=== PATIENT | female | born 2000 | race Caucasian/White ===

== ENCOUNTER 2022-09-11 00:01 | Inpatient (IN) | payer OTHER ==
[~2022-09-11] VITALS: Ht 162.6 cm; Wt 118.4 kg
--- NOTE | 2022-09-11 10:48 | PR ---
[facility] [facility] [address] [facility] [place], [place] [address] Signed Progress Notes IP Datetime Report Generated by CPN: 09/11/2022 10:48 PROGRESS NOTES: [id number] Impression: Reassuring Heart Rate Procedures: Artificial ROM; Sterile Vag Exam Plan: Continue Present Management VITAL SIGNS: [id number] Vital Signs: Reviewed; Within Normal Limits EXAM: [id number] Dilatation: 1.0 Effacement: 50 Station: -2 Contractions: q 2 to 3 min MEMBRANES: [id number] Comments: Still comfortable but leonel frequently. Will continue. FETUS A: [id number] FHR Baseline: 125 Variability: Moderate 6-25bpm Accelerations: 15X15 Decelerations: None FHR Category: Category I Presentation: Vertex Comments on Fetus A: No evidence of metabolic acidosis FETUS B: [id number] Signing Physician: Sury Cervantes MD Copies: ~ *Electronically Signed* 09/11/22 1048 SURY CERVANTES MD PATIENT NAME: SAMIRAIRMA Dumont PROGRESS NOTE DATE OF : 99 PHYSICIAN: SURY CERVANTES MD RPT #: [id number] REPORT IS CONFIDENTIAL AND NOT TO BE RELEASED WITHOUT AUTHORIZATION
--- NOTE | 2022-09-11 12:35 | PR ---
[facility] [address] [facility] [place], [place] [address] Signed Progress Notes IP Datetime Report Generated by CPN: 09/11/2022 12:35 PROGRESS NOTES: [id number] Impression: Reassuring Heart Rate Procedures: Sterile Vag Exam Plan: Continue Present Management VITAL SIGNS: [id number] Vital Signs: Reviewed; Within Normal Limits EXAM: [id number] Dilatation: 1.0 Effacement: 50 Station: -2 Contractions: q 2 to 3 min MEMBRANES: [id number] Comments: Having some low back discomfort. Will work on different positions as I suspect baby may be posterior. FETUS A: [id number] FHR Baseline: 125 Variability: Moderate 6-25bpm Accelerations: 15X15 Decelerations: None FHR Category: Category I Presentation: Vertex Comments on Fetus A: No evidence of metabolic acidosis FETUS B: [id number] Signing Physician: Sury Cervantes MD Copies: ~ *Electronically Signed* 09/11/22 1235 SURY CERVANTES MD PATIENT NAME: IRMA HOGAN PROGRESS NOTE DATE OF : 99 PHYSICIAN: SURY CERVANTES MD RPT #: [id number] REPORT IS CONFIDENTIAL AND NOT TO BE RELEASED WITHOUT AUTHORIZATION
--- NOTE | 2022-09-11 18:46 | PR ---
[facility] [address] [place], [place] [address] Signed Progress Notes IP Datetime Report Generated by CPN: 09/11/2022 18:46 PROGRESS NOTES: [id number] Impression: Reassuring Heart Rate Procedures: Intrauterine Pressure Catheter; Sterile Vag Exam Plan: Continue Present Management VITAL SIGNS: [id number] Vital Signs: Reviewed; Within Normal Limits EXAM: [id number] Dilatation: 4.0 Effacement: 90 Station: -2 Contractions: q 2 to 3 min MEMBRANES: [id number] Comments: Comfortable after epidural but contractions not picking up well. Will place IUPC and augment if needed. FETUS A: [id number] FHR Baseline: 125 Variability: Moderate 6-25bpm Accelerations: 15X15 Decelerations: None FHR Category: Category I Presentation: Vertex Comments on Fetus A: No evidence of metabolic acidosis FETUS B: [id number] Signing Physician: Sury Cervantes MD Copies: ~ *Electronically Signed* 09/11/22 1846 SURY CERVANTES MD PATIENT NAME: IRMA HOGAN PROGRESS NOTE DATE OF : 99 PHYSICIAN: SURY CERVANTES MD RPT #: [id number] REPORT IS CONFIDENTIAL AND NOT TO BE RELEASED WITHOUT AUTHORIZATION
--- NOTE | 2022-09-11 19:06 | PR ---
[facility] [address] [facility] [place], [place] [address] Signed Progress Notes IP Datetime Report Generated by CPN: 09/11/2022 19:06 PROGRESS NOTES: [id number] Impression: Non-reassuring Heart Rate Procedures: Intrauterine Pressure Catheter; Sterile Vag Exam Plan: Continue Present Management VITAL SIGNS: [id number] Vital Signs: Reviewed; Within Normal Limits EXAM: [id number] Dilatation: 4.0 Effacement: 90 Station: -2 Contractions: q 2 to 3 min MEMBRANES: [id number] Comments: IUPC replaced and baby did not tolerate this well with decel. Recovering now but will require close observation. Contractions now registering, however. FETUS A: [id number] FHR Baseline: 125 Variability: Moderate 6-25bpm Accelerations: 15X15 Decelerations: None FHR Category: Category I Presentation: Vertex Comments on Fetus A: No evidence of metabolic acidosis FETUS B: [id number] Signing Physician: Sury Cervantes MD Copies: ~ *Electronically Signed* 09/11/221905 SURY CERVANTES MD PATIENT NAME: IRMA HOGAN PROGRESS NOTE DATE OF : 99 PHYSICIAN: SURY CERVANTES MD RPT #: [id number] REPORT IS CONFIDENTIAL AND NOT TO BE RELEASED WITHOUT AUTHORIZATION
--- NOTE | 2022-09-11 20:45 | PR ---
[facility] [address] [facility] [place], [place] [address] Signed Progress Notes IP Datetime Report Generated by CPN: 09/11/2022 20:45 PROGRESS NOTES: [id number] Impression: Reassuring Heart Rate Procedures: Scalp Electrode; Sterile Vag Exam Plan: Augmentation VITAL SIGNS: [id number] Vital Signs: Reviewed; Within Normal Limits EXAM: [id number] Dilatation: 4.0 Effacement: 90 Station: -2 Contractions: q 2 to 3 min MEMBRANES: [id number] Comments: Comfortable. Overall reassuring status with accels. She may require pit augment as contraction pattern may not be adequate in frequency. FETUS A: [id number] FHR Baseline: 125 Variability: Moderate 6-25bpm Accelerations: 15X15 Decelerations: None FHR Category: Category I Presentation: Vertex Comments on Fetus A: No evidence of metabolic acidosis FETUS B: [id number] Signing Physician: Sury Cervantes MD Copies: ~ *Electronically Signed* 09/11/222044 SURY CERVANTES MD PATIENT NAME: SAMIRAKANDYIRMA K PROGRESS NOTE DATE OF : 99 PHYSICIAN: SURY CERVANTES MD RPT #: [id number] REPORT IS CONFIDENTIAL AND NOT TO BE RELEASED WITHOUT AUTHORIZATION
--- NOTE | 2022-09-12 01:18 | PR ---
[facility] [address] [facility] [place], [place] [address] Signed Progress Notes IP Datetime Report Generated by CPN: 09/12/2022 01:18 PROGRESS NOTES: [id number] Impression: Reassuring Heart Rate Procedures: Sterile Vag Exam Plan: Continue Present Management VITAL SIGNS: G8204330 Vital Signs: Reviewed; Within Normal Limits EXAM: [id number] Dilatation: 4.5 Effacement: 90 Station: -2 Contractions: q 2 to 3 min MEMBRANES: [id number] Comments: Minimal progress. status reassuring with accels. Will continue with close observation. FETUS A: [id number] FHR Baseline: 125 Variability: Moderate 6-25bpm Accelerations: 15X15 Decelerations: None FHR Category: Category I Presentation: Vertex Comments on Fetus A: No evidence of metabolic acidosis FETUS B: [id number] Signing Physician: Sury Cervantes MD Copies: ~ *Electronically Signed* 09/12/22 0118 SURY CERVANTES MD PATIENT NAME: IRMA HOGAN PROGRESS NOTE DATE OF : 99 PHYSICIAN: SURY CERVANTES MD RPT #: [id number] REPORT IS CONFIDENTIAL AND NOT TO BE RELEASED WITHOUT AUTHORIZATION
--- NOTE | 2022-09-12 06:36 | PR ---
[facility] [place] [facility] [address] [facility] [place], [place] [address] Signed Progress Notes IP Datetime Report Generated by CPN: 09/12/2022 06:36 PROGRESS NOTES: [id number] Impression: Normal Progression of Labor; Reassuring Heart Rate Procedures: Sterile Vag Exam Plan: Anesthesia Consult VITAL SIGNS: U6994033 Vital Signs: Reviewed; Within Normal Limits EXAM: [id number] Dilatation: 9.0 Effacement: 95 Station: 0 Contractions: q 2 to 3 min MEMBRANES: [id number] Comments: Starting to get uncomfortable again. Progressing. status OK with accel with exam. Will redose and continue close observation. FETUS A: [id number] FHR Baseline: 125 Variability: Moderate 6-25bpm Accelerations: 15X15 Decelerations: None FHR Category: Category I Presentation: Vertex Comments on Fetus A: No evidence of metabolic acidosis FETUS B: [id number] Signing Physician: Sury Cervantes MD Copies: ~ *Electronically Signed* 09/12/22 0636 SURY CERVANTES MD PATIENT NAME: SAMIRAIRMA Dumont PROGRESS NOTE DATE OF : 99 PHYSICIAN: SURY CERVANTES MD RPT #: [id number] REPORT IS CONFIDENTIAL AND NOT TO BE RELEASED WITHOUT AUTHORIZATION
--- NOTE | 2022-09-13 08:40 | PR ---
[facility] [address] [facility] [place], [place] [address] Signed PP Progress Notes Datetime Report Generated by CPN: 09/13/2022 08:40 SUBJECTIVE: [id number] Pain: Within Normal Limits Vital Signs: I0975821 Vital Signs: Reviewed; Within Normal Limits EXAM: Ongoing Cardiovascular: Not Done Respiratory: Not Done Abdomen/Uterus: Abnormal Lochia: Normal Vulva/Perineum: Not Done Breasts: Not Done CVA Tenderness: Not Done Extremities: Normal Incision: Not Applicable Progress: Normal Exam Comments: Fundus firm, NT @ U-1. H/H 11.6/34, WBC 9.8, plat 106k IMPRESSION/PLAN/PROCEDURES: [id number] Impression: Normal Progression Other Impression: Thrombocytopenia Plan: Continue Present Management Progress Notes: Doing well overall Thrombocytopenia--suspect gestational but will recheck in am Signing Physician: Sury Cervantes MD Copies: ~ *Electronically Signed* 09/13/2240 SURY CERVANTES MD PATIENT NAME: IRMA HOGAN PROGRESS NOTE DATE OF : 99 PHYSICIAN: SURY CERVANTES MD RPT #: [id number] REPORT IS CONFIDENTIAL AND NOT TO BE RELEASED WITHOUT AUTHORIZATION
--- NOTE | 2022-09-14 08:57 | PR ---
[facility] [address] [facility] [place], [place] [address] Signed PP Progress Notes Datetime Report Generated by CPN: 09/14/2022 08:57 SUBJECTIVE: [id number] Pain: Within Normal Limits Vital Signs: [id number] Vital Signs: Reviewed; Within Normal Limits EXAM: Ongoing Cardiovascular: Not Done Respiratory: Not Done Abdomen/Uterus: Abnormal Lochia: Normal Vulva/Perineum: Not Done Breasts: Not Done CVA Tenderness: Not Done Extremities: Normal Incision: Not Applicable Progress: Normal Exam Comments: Fundus firm, NT @ U-2. H/H 11.6/34.9, WBC 7.4, plat 112k IMPRESSION/PLAN/PROCEDURES: [id number] Impression: Normal Progression Other Impression: Thrombocytopenia Plan: Discharge Procedures: None Progress Notes: Doing well. Thrombocytopenia improving. She is ready for D/C. Signing Physician: Sury Cervantes MD Copies: ~ *Electronically Signed* 09/14/22 0857 SURY CERVANTES MD PATIENT NAME: IRMA HOGAN PROGRESS NOTE DATE OF : 99 PHYSICIAN: SURY CERVANTES MD RPT #: [id number] REPORT IS CONFIDENTIAL AND NOT TO BE RELEASED WITHOUT AUTHORIZATION
== END 2022-09-14 11:45 | disposition home or self-care (01) | DRG 806 ==
LOC: FBC 00:01 → MS 09-12 18:46 → FBC 09-12 18:47
PROVIDERS: ADMIT Obstetrics & Gynecology; ATTEND Obstetrics & Gynecology
PROC: 10E0XZZ Delivery of Products of Conception, External Approach (ICD-10-PCS; principal; 2022-09-12)
PROC: 0KQM0ZZ Repair Perineum Muscle, Open Approach (ICD-10-PCS; 2022-09-12)
PROC: 10907ZC Drainage of Amniotic Fluid, Therapeutic from Products of Conception, Via Natural or Artificial Opening (ICD-10-PCS; 2022-09-12)
PROC: 10H07YZ Insertion of Other Device into Products of Conception, Via Natural or Artificial Opening (ICD-10-PCS; 2022-09-12)
PROC: 3E0R3BZ Introduction of Anesthetic Agent into Spinal Canal, Percutaneous Approach (ICD-10-PCS; 2022-09-12)
PROC: 00HU33Z Insertion of Infusion Device into Spinal Canal, Percutaneous Approach (ICD-10-PCS; 2022-09-12)
DX: O36.63X0 Maternal care for excessive fetal growth, third trimester, not applicable or unspecified (principal); O99.12 Other diseases of the blood and blood-forming organs and certain disorders involving the immune mechanism complicating childbirth; Z37.0 Single live birth; O76 Abnormality in fetal heart rate and rhythm complicating labor and delivery; Z20.822 Contact with and (suspected) exposure to COVID-19; O70.1 Second degree perineal laceration during delivery; O99.214 Obesity complicating childbirth; E66.01 Morbid (severe) obesity due to excess calories; D69.6 Thrombocytopenia, unspecified; Z3A.39 39 weeks gestation of pregnancy; Z79.899 Other long term (current) drug therapy; Z87.891 Personal history of nicotine dependence
CPT/HCPCS: 36415; 85025; 85027; 86850; 86900; 86901; 87502; A9270; J2590; J2795; J3010; J7121; U0003

== ENCOUNTER 2022-11-28 06:05 | Day surgery (SDC) | payer OTHER ==
--- NOTE | 2022-11-22 08:46 | NUR ---
CALLED PT TO COMPLETED A PHONE PRE ADMIT. PT'S PHONE WENT TO [employer]. LEFT MESSAGE AND WILL TRY AGAIN TODAY AT NOON. IF NOT AVAILABLE THEN WILL REACH OUT ON THE .
--- NOTE | 2022-11-22 15:01 | NUR ---
WAS ABLE TO COMPLETE PHONE PRE-ADMIT AT THIS TIME. PT REPORTS SHE HAS HAD THE RESP INFECTION THAT HAS BEEN GOING AROUND. WENT TO [facility] AND NOW IS USING HER ALBURTAL INHAILER NEEDED. NO SOB, BUT STILL HAS A COUGH. THIS SUPER[employer]OR [employer]ING [employer] WILL CALL HER ON SATURDAY TO SEE HOW SHE IS FEELING.
[~2022-11-28] VITALS: Ht 162.6 cm; Wt 93.2 kg
--- NOTE | ~2022-11-28 | OR ---
[facility] [address] [place], [place] [address] Draft DATE OF OPERATION: 11/28/2022 SURGEON: Sury Cervantes MD PREOPERATIVE DIAGNOSIS: Displaced intrauterine device. POSTOPERATIVE DIAGNOSIS: Displaced intrauterine device. PROCEDURE: Laparoscopy with removal of intrauterine device. ANESTHESIA: General ET. ESTIMATED BLOOD LOSS: Minimal. DRAINS: None. INDICATIONS AND FINDINGS: The patient is a 22-year-old female who had an IUD placed approximately six weeks ago following her vaginal delivery. When she was seen for her followup, the IUD string could not be seen. Ultrasound did not show it to be within the uterus. Pelvic x-ray did show the IUD to be in the low right pelvis. She is now admitted for removal of the IUD. Exam under anesthesia was normal. At the time of laparoscopy, the pelvis itself was normal with normal tubes and ovaries. There was no obvious site of perforation of the uterus. The IUD was in the right lower quadrant and was easily retrieved. PROCEDURE IN DETAIL: The patient was prepped and draped in the dorsal lithotomy position. An open-sided speculum was placed. The anterior lip of the cervix was visualized and grasped with a single-tooth tenaculum. The Hulka clamp was then placed and the tenaculum and speculum removed. Attention was directed above. The infraumbilical area was injected with 0.5% Marcaine plain. An incision was made with a knife. Each layer was serially elevated, incised until the fascia was open ended and identified. Stay sutures of 0 Vicryl were placed. Peritoneum was opened bluntly and a Tyrese cannula placed and the balloon inflated and it was tied into place. Placement of the scope confirmed proper PATIENT NAME: IRMA HOGAN OPERATIVE REPORT DATE OF : 99 REPORT #: [id number] PHYSICIAN: SURY CERVANTES MD PCP: NO PRIMARY CARE PHYSICIAN REPORT IS CONFIDENTIAL AND NOT TO BE RELEASED WITHOUT AUTHORIZATION [facility] [address] [place], [place] [address] Draft positioning. CO2 was then introduced into the abdomen. When the abdomen was appropriately distended, the secondary port was placed. This was placed on the left lateral aspect of the abdomen sightly below the level of the umbilicus. It was very difficult to transilluminate the abdomen, however. The port site was made quite laterally to avoid the epigastrics. This area was injected with the Marcaine incision made with a knife and a 5 mm port placed under direct vision. Following this, pelvis was evaluated. The IUD was not seen. The right lower quadrant of the string was easily visualized and grasped and the IUD was pulled through the 5 mm port without any difficulty. Inspection of the uterus did not show any perforation site that was obvious. Following this, the instruments removed from the abdomen after allowing as much CO2 as possible to escape. The fascial incision of the umbilicus was reidentified and closed with a running suture of 0 Vicryl. The deep space was closed with another suture of 0 Vicryl. The skin incisions were closed with subcuticular sutures of 3-0 Vicryl Rapide. Attention was directed down below, the Hulka clamp removed. The cervix was visualized. There was no evidence of any ongoing active bleeding. She was taken to the recovery room in good condition. All sponge and needle counts were correct. MD YEIMY Sullivan/DEIDRA /[id number] Copies: ~ PATIENT NAME: IRMA HOGAN OPERATIVE REPORT DATE OF : 99 REPORT #: [id number] PHYSICIAN: SURY CERVANTES MD PCP: NO PRIMARY CARE PHYSICIAN REPORT IS CONFIDENTIAL AND NOT TO BE RELEASED WITHOUT AUTHORIZATION
[~2022-11-28 06:05] MED LIST: DEBLITANE0.35 MG TOP; PROVENTIL HFA6.7 GM INH
[2022-11-28] MEDS ORDERED: AUROBINDO (06:31)
--- NOTE | 2022-11-28 08:26 | NUR ---
11/28/22 0826 Vanessa Snider 0804-PATIENT ARRIVED TO PACU ON 6L MASK NONAROUSABLE ORAL AIRWAY IN PLACE RR EVEN. HOBE ELEVATEDD. 2 LAP SITES TO ABDOMEN CDI WITH BANDAIDS. SB HR UPPER 40'S-50'S. IVF INFUSING.
--- NOTE | 2022-11-28 09:00 | NUR ---
0850: PT ARRIVES TO DS TREATMENT ROOM FROM PACU AWAKE. PT RATES PAIN 3/10 "ONLY WHEN COUGHING" AND SLIGHT CRAMPING. PT DENIES ANY NAUSEA AND STATES "I AM HUNGRY!" PT SPOUSE AT BEDSIDE ASKS IF SHE CAN HAVE STRAWBERRIES AND GRAPES. PT PROVIDED ICE CHIPS AND ICED WATER PER REQUEST. WARM BLANKETS PROVIDED, DC CRITERIA EXPLAINED. CALL LIGHT WITHIN REACH.
[2022-11-28] MEDS ORDERED: IBUPROFEN800 MG PO (09:53)
[2022-11-28] MEDS ORDERED: ONDANSETRON ODT8 MG PO (09:53)
[2022-11-28] MEDS ORDERED: PERCOCET 5-3251 EACH PO (09:53)
--- NOTE | 2022-11-28 13:00 | NUR ---
[id number]: PT USES CALL LIGHT WITH URGE TO VOID. PT SITS AT SIDE OF BED PRIOR TO STANDING, DENIES DIZZINESS OR NAUSEA WITH AMBULATION. PT ABLE TO VOID 800 MLS YELLOW URINE WITH PINK TINGE. PT REQUESTS TAMPON AND THIS RN EDUCATES PT THAT NOTHING CAN BE IN VAGINA UNTIL FOLLOW UP APPT AND IS PROVIDED NEW PERIPAD AND MESH PANTIES. PT BACK TO STRETCHER AND DR. RUBIN IN TO SEE PT. PT STATES THAT IT IS PAINFUL TO VOID AND DR. RUBIN VERBALLY ORDERS UA WITH CULTURES. PT WILL US CALL LIGHT WHEN READY TO VOID AGAIN. SIG OTHER REMAINS AT BEDSIDE. [id number]: PT USES CALL LIGHT TO NOTIFY RN OF URGE TO VOID, STEADY GAIT TO BATHROOM AND ABLE TO FILL SPECIMEN CUP WITH DILUTE YELLOW URINE. PT DRESSES SELF AND OPENS CURTAIN WHEN FINISHED. 1025: DC INSTRUCTIONS PRESENTED VERBALLY AND WRITTEN AND PT PROVIDED HARD SCRIPT TO TAKE TO PHARMACY. IV REMOVED AND PT DC FROM DS TREATMENT ROOM VIA WC WITH Filemon TURNER RN TO SIG OTHER IN PERSONAL VEHICLE HOME.
== END 2022-11-28 10:30 | disposition home or self-care (01) ==
LOC: DS 06:05
PROVIDERS: ATTEND Obstetrics & Gynecology
PROC: 0UPD4HZ Removal of Contraceptive Device from Uterus and Cervix, Percutaneous Endoscopic Approach (ICD-10-PCS; principal; 2022-11-28 07:30)
DX: T83.32XA Displacement of intrauterine contraceptive device, initial encounter (principal); Y76.2 Prosthetic and other implants, materials and accessory obstetric and gynecological devices associated with adverse incidents
CPT/HCPCS: 36415; 81001; 84703; 85025; J1100; J1644; J1885; J2001; J2250; J2405; J2704; J2765; J7121